=== PATIENT | female | born 1995 | race African-American/Black ===

== ENCOUNTER 2021-02-26 20:43 | Emergency (ER) | payer OTHER ==
--- NOTE | 2021-02-26 21:07 | ED Physician Documentation ---
PD HPI URI - Stated complaint Stated Complaint: NAUSEA,COUGH,SOA - Chief complaint Chief Complaint: Resp - History obtained from History obtained from: Patient - History of Present Illness Timing - onset: How many weeks ago (08/24) Timing duration: Weeks (08/24) Timing details: Gradual onset, Still present Associated symptoms: Dry cough, Chest pain (with coughing), Dyspnea, NVD (nausea the past couple days, and some emesis of phlegm with coughing hard.). No: Fever Contributing factors: Unimmunized (has not had COVID vaccine). No: Sick contact, Travel, COPD / asthma Improves by: Rest Worsened by: Activity Similar symptoms before: Has not had sx before Review of Systems Constitutional: reports: Myalgias, Fatigue. denies: Fever Nose: reports: Congestion. denies: Rhinorrhea / runny nose Throat: denies: Sore throat Cardiac: reports: Chest pain / pressure (with cough) Respiratory: reports: Dyspnea, Cough GI: reports: Nausea. denies: Diarrhea Skin: denies: Rash Musculoskeletal: denies: Back pain PD PAST MEDICAL HISTORY - Past Medical History Cardiovascular: None Respiratory: None Neuro: None Endocrine/Autoimmune: None - Present Medications Home Medications: Ambulatory Orders Medication Instructions Recorded Confirmed Albuterol Sulf [Ventolin Hfa 3 - 4 puffs INH Q4HR PRN #1 inhaler 02/26/21 Inhaler] Benzonatate [Tessalon] 100 mg PO TID PRN #20 cap 02/26/21 Ondansetron Odt [Zofran] 4 mg TL Q6H PRN #10 tablet 02/26/21 Sumatriptan [Imitrex] 20 mg NS PRN PRN 02/26/21 02/26/21 dexAMETHasone [Decadron] 4 mg PO DAILY #5 tablet 02/26/21 - Allergies Allergies/Adverse Reactions: Allergies Allergy/AdvReac Type Severity Reaction Status Date / Time No Known Drug Allergies Allergy Verified 02/26/21 20:56 PD ED PE NORMAL - Vitals Vital signs reviewed: Yes - General General: Alert and oriented X 3, Well developed/nourished, Other (coughing spasms at times, with then leading to emesis of phlegm. Not stomach vomiting per se. ) - HEENT HEENT: Ears normal, Pharynx benign - Neck Neck: Supple, no meningeal sign, No adenopathy - Cardiac Cardiac: RRR, No murmur - Respiratory Respiratory: No: Clear bilaterally (no coarse sounds. Some exp wheezing, most noted with coughing. ) - Abdomen Abdomen: Soft, Non tender - Derm Derm: Normal color, Warm and dry - Extremities Extremities: No edema, No calf tenderness / cord - Neuro Neuro: Alert and oriented X 3, No motor deficit, Normal speech Results - Vitals Vitals: Vital Signs - 24 hr 02/26/21 02/26/21 02/26/21 20:52 21:53 22:58 Temperature 36.6 C 36.4 C L Heart Rate 76 76 72 Respiratory 18 18 18 Rate Blood Pressure 145/86 H 127/78 O2 Saturation 100 100 Oxygen O2 Source Room air - Labs Labs: Laboratory Tests 02/26/21 02/26/21 02/26/21 21:33 21:33 21:33 WBC 6.1 RBC 4.43 Hgb 12.7 Hct 39.3 MCV 88.7 MCH 28.7 MCHC 32.3 RDW 15.1 H Plt Count 249 MPV 9.6 Neut # (Auto) 2.8 Lymph # (Auto) 2.7 [place] # (Auto) 0.5 Eos # (Auto) 0.2 Baso # (Auto) 0.0 Absolute Nucleated RBC 0.00 Nucleated RBC % 0.0 Sodium 138 Potassium 4.2 Chloride 103 Carbon Dioxide 27 Anion Gap 8.0 BUN 8 Creatinine 0.7 Estimated GFR (MDRD) 122 Glucose 114 H Calcium 9.6 Total Bilirubin 0.3 AST 17 ALT 17 Alkaline Phosphatase 50 Total Protein 7.9 Albumin 4.0 Globulin 3.9 Albumin/Globulin Ratio 1.0 Lipase 32 Serum HCG, Qual NEGATIVE - Rads (name of study) chest xray Radiology: Prelim report reviewed (no infiltrates), See rad report PD MEDICAL DECISION MAKING - ED course Complexity details: reviewed results (chest xray clear), considered differential (seems likely viral or environmental bronchial irritation. Not sounding bacterial. ), d/w patient Departure - Departure Disposition: 01 Home, Self Care Clinical Impression: Lower resp. tract infection Condition: Stable Record reviewed to determine appropriate education?: Yes Instructions: ED Upper Resp Infec No Abx Tx Follow-Up: ERNA MIRANDA MD [Primary Care Provider] - Prescriptions: Albuterol Sulf [Ventolin Hfa Inhaler] 3 - 4 puffs INH Q4HR PRN #1 inhaler PRN Reason: Shortness Of Air/Wheezing dexAMETHasone [Decadron] 4 mg PO DAILY #5 tablet Benzonatate [Tessalon] 100 mg PO TID PRN #20 cap PRN Reason: Cough Ondansetron Odt [Zofran] 4 mg TL Q6H PRN #10 tablet PRN Reason: Nausea / Vomiting Comments: Your chest x-ray does not show any signs of pneumonia. Your white count is good. My sense of this is more irritative/environmental or possibly viral i nflammation of the bronchials and airways. We will treat it with an inhaler 3 to 4 puffs 4 times a day for the next several days to week and then 1 to 2 puffs as needed or coughing and before activity for up to a week or 2. Also Decadron steroid for inflammation of the airways daily for 5 more days. Add benzonatate if needed for cough and ondansetron if needed for nausea. The nausea should decrease as the degree of coughing and sputum decrease with the above measures. Less exertional activity over the next several days due to the coughing and trouble breathing. Follow-up with your primary care if not improved well over the next several days. You have a Covid test pending. You need to self quarantine until the result is done and negative. Do not leave your house. Do not get near anybody. The results should be done in 48 to 72 hours, but sometimes longer. We will call with a positive result, the fastest way to get a negative result for confirmation though is to go to the hospital website at [email or web address], click on the my [email or web address] tab and sign up for the patient portal. If any friends or family get sick and would like to have a Covid test done, but do not have signs or symptoms that would necessitate being hospitalized, we encourage testing through our coronavirus swabbing station, call [phone] to schedule an appointment. Forms: Activity restrictions Discharge Date/Time: 02/26/21 22:58
[2021-02-26] MEDS ORDERED: DEXAMETHASONE 10 MG/ML VIAL PO STA (21:25)
[2021-02-26] MEDS ORDERED: ONDANSETRON ODT 4 MG TABLET TL STA (21:25)
[2021-02-26] MEDS ORDERED: CHERRY SYRUP 10 ML UDC PO ONE (21:25)
[2021-02-26] MEDS ORDERED: ALBUTEROL NEB 2.5 MG/3 ML INH STA (21:25)
[2021-02-26] MEDS ORDERED: BENZONATATE 100 MG CAPSULE PO STA (21:25)
[2021-02-26 21:37] LABS: BASOPHILS % (AUTO) 0.5 %; EOSINOPHILS # (AUTO) 0.2 10^3/uL (0.0-0.7); EOSINOPHILS % (AUTO) 2.8 %; HCT - HEMATOCRIT 39.3 % (37.0-47.0); HGB - HEMOGLOBIN 12.7 g/dL (12.0-16.0); LYMPHOCYTES # (AUTO) 2.7 10^3/uL (1.5-3.5); LYMPHOCYTES % (AUTO) 43.9 %; MEAN CORPUSCULAR HEMOGLOBIN 28.7 pg (27.0-31.0); MEAN CORPUSCULAR HGB CONC 32.3 g/dL (32.0-36.0); MEAN CORPUSCULAR VOLUME 88.7 fL (81.0-99.0); MEAN PLATELET VOLUME 9.6 fL (7.9-10.8); MONOCYTES # (AUTO) 0.5 10^3/uL (0.0-1.0); MONOCYTES % (AUTO) 7.7 %; NEUTROPHILS # (AUTO) 2.8 10^3/uL (1.5-6.6); NEUTROPHILS % (AUTO) 44.9 %; PLT - PLATELET COUNT 249 10^3/uL (130-450); RED BLOOD COUNT 4.43 10^6/uL (4.20-5.40); RED CELL DISTRIBUTION WIDTH 15.1 % (12.0-15.0); WHITE BLOOD COUNT 6.1 x10^3/uL (4.8-10.8)
[2021-02-26 21:51] LABS: BILIRUBIN,TOTAL 0.3 mg/dL (0.2-1.0); CALCIUM 9.6 mg/dL (8.5-10.3); CREATININE 0.7 mg/dL (0.4-1.0); POTASSIUM 4.2 mmol/L (3.5-5.0); TOTAL PROTEIN 7.9 g/dL (6.7-8.2)
[2021-02-26 22:17] LABS: HCG,QUALITATIVE BLOOD NEGATIVE
[2021-02-26 22:58] VITALS: BP 127/78
--- NOTE | 2021-02-27 07:37 | XRAY Report ---
PROCEDURE: Chest 1 View X-Ray INDICATIONS: cough for 2 weeks, worse today TECHNIQUE: One view of the chest was acquired. COMPARISON: None. FINDINGS: Surgical changes and devices: None. Lungs and pleura: No pleural effusions or pneumothorax. Lungs are clear. Mediastinum: Mediastinal contours appear normal. Heart size is normal. Bones and chest wall: No suspicious bony lesions. Overlying soft tissues appear unremarkable. IMPRESSION: No acute cardiopulmonary disease. Reviewed by: Lilibeth Calderon MD on 02/27/2021 7:36 AM PDT Approved by: Lilibeth Calderon MD on 02/27/2021 7:36 AM PDT Station ID: [id number]
== END 2021-02-26 22:58 | disposition home or self-care (01) ==
LOC: ED 20:43
DX: J22 Unspecified acute lower respiratory infection (principal); Z20.822 Contact with and (suspected) exposure to COVID-19
CPT/HCPCS: 36415; 71045; 80053; 83690; 84703; 85025; 87635; 94640; 99284; A9270; Q0162

== ENCOUNTER 2021-03-20 12:44 | Outpatient (CLI) | payer OTHER ==
[2021-03-20 13:28] VITALS: BP 115/79
--- NOTE | 2021-03-20 13:28 | SLEEP CARE CONSULTATION ---
Information from patient questionnaire entered by Tawana Kumar. I have reviewed and concur with the information entered by Tawana Kumar. This document represents the service I personally performed and the decisions made by me, Tiffanie Rod ARNP. History of Present Illness Service Date and Time: 03/20/2021 1244 Reason for Visit: New patient Chief Complaint: reports: Unrefreshed sleep, Snoring, Excessive daytime sleepiness, Fatigue, Frequent awakenings at night Date of Onset: Two years or so Usual bedtime: 8:30 - 10 PM Time it takes to fall asleep: 2 - 3 hours maybe Snores at night: Yes Observed to quit breathing while asleep: Yes Sleeps alone due to snoring: No Number of times waking at night: 4.5 Reasons for waking at night: reports: Other (Unknown reason). denies: Choking, Snoring, Gasping for air Toss, Turn, or Twitch while sleeping: Yes Recalls having dreams: Yes Usually gets out of bed at: 0500; weekends 0900 Feels refreshed in the morning: No Morning headache: Yes (Once I get moving; hx of migraines; she wakes up daily with headaches) Sleepy or fatigued during the day: Yes Ever fallen asleep while driving: No (will not drive when very tired, no drowsy driving or accidents) Takes day naps: No Dreams during day naps: No Prior sleep studies: No Additional HPI information: I had the pleasure of seeing TANNER AMBROSE today regarding the possibility of her having a sleep disorder. Her current complaints are excessive daytime sleepiness, fatigue, frequent night awakenings, insomnia, snoring and unrefreshed sleep. She has been having inconsistent sleeping habits because her schedule was "all over the place". She has nights that she does not sleep much because she can't fall asleep and then will wake up frequent after falling asleep. She snores loudly according to her . She does not know what is waking her up at night. She does not wake up feeling rested on average. Her has not mentioned that she has pauses in breathing. She wakes up daily with headaches and has a history of migraines. Both of her parents have sleep apnea and are treated with PAP devices. 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 Patient is and [employer] in [place]. Have you smoked in the past 12 months: No Alcohol use: Yes Alcohol amount and frequency: 2-3 drinks socially - once or twice a month Caffeine use: Yes Caffeine amount and frequency: occasional, not daily Family History Family history of sleep disordered breathing: Yes Family Hx Sleep Apnea: Mother: Sleep apnea - Treated, Father: Sleep apnea - Treated Allergies and Home Medications Drug allergies reviewed: Yes (NKDA) Home medication list reviewed: Yes Allergy and home medication list: Sumatriptan for migraines, prn Ibuprofen, prn Review of Systems Weight gain over past 5 years: 70 Cardiovascular: reports: palpitations. denies: high blood pressure Respiratory: reports: shortness of breath Gastrointestinal: reports: heartburn, nausea, abdominal pain Neurological: reports: headaches Psychiatric: reports: anxiety, depression Ear/Nose/Throat: reports: wisdom teeth removed (has 2 teeth still). denies: injury to nose, tonsillectomy Endocrine: denies: thyroid disease (thyroid being monitored with ultrasounds due to overactive nodes) Musculoskeletal: reports: joint pain (stiffness), neck pain, back pain Immunologic: reports: sneezing (runny nose), itching Physical Exam Blood Pressure: 115/79 Cuff size: wrist Heart Rate: 84 O2 Saturation: 95 Height: 5 ft 7 in Weight: 244 lb Body Mass Index: 38.2 BMI Classification: Obese Neck circumference: 16.25 (inches) Nostrils: patent to airflow Mouth and throat: narrow oropharynx Soft palate: long Hard palate: normal Uvula visualization: 100% Mallampati Class I Tongue: normal in size Tonsils: small Neck: normal w/o lymphadenopathy or thyromegaly Heart: regular rate and rhythm Lungs: clear bilaterally Impression and Plan 1. Suspected Obstructive Sleep Apnea-Hypopnea Syndrome, as suggested by a history of loud and irregular snoring, morning headache, frequent awakening during the night, unrefreshed sleep, cognitive impairment, and excessive daytime sleepiness. Narrow oropharynx and obesity are common predisposing factors for obstructive sleep apnea-hypopnea syndrome. I recommend proceeding to polysomnography to confirm the diagnosis and to assess severity. If the patient has significant sleep disordered breathing, a manual CPAP titration study will also be performed to find the optimal treatment pressure. I informed the patient of what the sleep studies involve and after some discussion, obtained agreement to proceed. The pathophysiology of obstructive sleep apnea-hypopnea syndrome was discussed with the patient and health risks of cardiovascular and cerebrovascular disease if not treated. AAS brochure for obstructive sleep apnea-hypopnea syndrome given and reviewed. Risks of drowsy driving discussed in detail and patient advised to avoid long distance driving and to rack puller at the first sign of drowsiness. Patient agreed to plan. * Schedule polysomnography +- manual CPAP titration study and return in 1-2 weeks after the study to discuss result and initiate therapy. * Avoid long distance driving or driving when feeling sleepy. * Avoid alcohol, sedative and muscle relaxant around bedtime. * Attempt to lose weight. * Review instructions provided by trained office staff on how to prepare for the sleep study. * Return for follow-up after sleep study completed. Counseling Topics: Weight loss health impact Visit Type: In Office Time Spent with Patient (minutes): 30 Provider Statement: I spent 100% of the Face to Face Visit with the patient with greater than 50% spent counseling the patient and coordination of care.
== END 2021-03-20 12:45 | disposition home or self-care (01) ==
LOC: SC 12:44
PROVIDERS: ATTEND Nurse Practitioner Family
DX: R06.83 Snoring (principal); R51.9 Headache, unspecified; G47.8 Other sleep disorders; R41.89 Other symptoms and signs involving cognitive functions and awareness; G47.10 Hypersomnia, unspecified; E66.9 Obesity, unspecified; Z68.38 Body mass index [BMI] 38.0-38.9, adult
CPT/HCPCS: 99203; 99212

== ENCOUNTER 2021-03-26 14:26 | Outpatient (CLI) | payer OTHER | END 2021-03-26 14:27 | disposition home or self-care (01) | LOC: SC 14:26 | PROVIDERS: ATTEND Nurse Practitioner Family | DX: R06.83 Snoring (principal); G47.8 Other sleep disorders; R51.9 Headache, unspecified; G47.10 Hypersomnia, unspecified | CPT/HCPCS: 95806 ==

== ENCOUNTER 2021-04-10 14:57 | Outpatient (CLI) | payer OTHER ==
--- NOTE | 2021-04-10 15:08 | SLEEP CARE CONSULTATION ---
Information from patient questionnaire entered by Amparo Balderas. I have reviewed and concur with the information entered by Amparo Balderas. This document represents the service I personally performed and the decisions made by , Tiffanie Rod ARNP. History of Present Illness Service Date and Time: 04/10/20211456 Initial [place] Sleepiness Scale score: 18 (in 2020) Current [place] Sleepiness Scale score: 9 Additional HPI information: TANNER AMBROSE returns via Telehealth visit for follow up and results of the recently performed home sleep study. The patient was informed of the following findings: No significant sleep dis ordered breathing with an AHI 0.7 and tucker oxygen saturation of 91%. I explained the pathophysiology behind obstructive sleep apnea. Patient does not have sleep apnea and was advised how weight gain could increase the risk of developing sleep apnea in the future. I strongly encouraged the patient to lose weight. Patient has mild snoring. Snoring can be reduced by weight loss. Weight loss is best achieved with diet consult. Patient instructed to contact PCP for referral. Snoring can also be treated with an oral appliance from a dentist. Advised to check insurance coverage. In addition, an ENT evaluation can be do to see if other treatment is indicated. Patient counseled not drink alcohol less than 4 hours before bedtime as it can increase snoring and apnea. Patient was cautioned about risks of drowsy driving until sleepiness symptoms resolve. Sleep Study - Results Type of Sleep Study: Home sleep study Prior sleep studies: No Polysomnography/Home Sleep Study results: Physician Impression: The quality of the study is good. The length of the study is adequate (> 240 minutes). Please also see the tabulated and graphic data. 1. No evidence of sleep disordered breathing, with an AHI of 0.7/hr and tucker SaO2 of 91%. During the study, the patient had 0 apneas (0 obstructive, 0 central, 0 mixed) and 3 hypopneas. The longest episode lasted 40.5 seconds. The patient only slept supine during this study (supine AHI was 0.7 and non-supine, 0.00). Allergies and Home Medications Home medication list reviewed: Yes (no changes) Review of Systems Review of systems same as previous: Yes (no changes) Physical Exam Vital signs obtained and entered by: Telehealth visit to reduce exposure during Covid pandemic Height: 5 ft 7 in Impression and Plan Snoring but no significant sleep disordered breathing. Patient advised that often weight loss will reduce snoring as well as apnea risk. An oral appliance can also be used for snoring. This would require a dental consultation. Patient cautioned not to use other online appliances as can cause bite issues. A list of accredited dentists in area and one local dentist who makes oral appliances available in office. Patient is advised to check if insurance will cover. An ENT consult can also be helpful to determine if any other treatment is an option. * Attempt to lose weight * Avoid alcohol consumption near bedtime * The patient is cautioned about driving until sleepiness is completely resolved. * Return as needed. Counseling Topics: Weight loss health impact Visit Type: Telehealth Video Video Type: VSee Patient Location: Home Location of Provider: Office Patient agrees and consents to this telehealth visit type: Yes Patient agrees to have their insurance billed: Yes Time Spent with Patient (minutes): 10 Provider Statement: I spent 100% of the Telehealth Video Call with the patient with greater than 50% spent counseling the patient and coordination of care.
== END 2021-04-10 14:58 | disposition home or self-care (01) ==
LOC: SC 14:57
PROVIDERS: ATTEND Nurse Practitioner Family
DX: R06.83 Snoring (principal)